=== PATIENT | male | born 1945 ===

== ENCOUNTER → 2022-08-11 | Outpatient (CLI) | payer SELFPAY | LOC: LAB SHORT 10:20 | DX: L08.9 Local infection of the skin and subcutaneous tissue, unspecified (principal) | CPT/HCPCS: 87070; 87077; 87147; 87186; 87205 ==

== ENCOUNTER → 2025-04-10 | Outpatient (CLI) | payer MEDICARE, OTHER | LOC: LAB 14:40 → LAB SHORT 14:40 | DX: L08.9 Local infection of the skin and subcutaneous tissue, unspecified (principal) | CPT/HCPCS: 87070; 87077; 87147; 87186; 87205 ==